=== PATIENT | female | born 1975 | race Two or more races ===

== ENCOUNTER 2024-11-11 06:20 | Day surgery (SDC) | payer OTHER, SELFPAY ==
[2024-11-11 09:30] LABS: HCG, Urine Qualitative Screen Negative
== END 2024-11-11 11:12 | disposition home or self-care (01) ==
LOC: GI 06:20
PROVIDERS: ATTENDING PHYSICIAN Internal Medicine; FAMILY PHYSICIAN Internal Medicine
DX: Z12.11 Encounter for screening for malignant neoplasm of colon (principal)
CPT/HCPCS: G0121; 81025